=== PATIENT | male | born 1985 | race American Indian/Alaskan Native ===

== ENCOUNTER 2018-11-15 22:18 | Emergency (ER) | payer OTHER ==
[2018-11-15 22:29] VITALS: BP 135/77
--- NOTE | 2018-11-15 22:53 | Emergency Department Report ---
Blank Doc - Documentation Documentation: 33 y o male presents to ed cc of vomiting/diarrhea and peña after eating a spage tti dinner at an event states that an email was sent out that the spagetti was bad labs ,maybe IVF acc eval
[2018-11-15 23:16] LABS: Basophils % (Auto) 0.6 % (0.0-1.8); Eosinophils # (Auto) 0.1 K/mm3 (0.0-0.4); Eosinophils % (Auto) 0.6 % (0.0-4.3); Hematocrit 40.6 % (35.5-45.6); Hemoglobin 14.1 gm/dl (11.8-15.2); Lymphocytes % (Auto) 22.9 % (13.4-35.0); Mean Corpuscular HGB Conc 35 % (32-34); Mean Corpuscular Volume 91 fl (84-94); Monocytes # (Auto) 0.8 K/mm3 (0.0-0.8); Monocytes % (Auto) 8.8 % (0.0-7.3); Platelet Count 217 K/mm3 (140-440); Red Blood Count 4.49 M/mm3 (3.65-5.03); Red Cell Distribution Width 14.1 % (13.2-15.2)
[2018-11-16 00:04] LABS: BUN/Creatinine Ratio 17; Blood Urea Nitrogen 15 mg/dL (9-20); Calcium 9.3 mg/dL (8.4-10.2); Hemolysis Index 5
--- NOTE | 2018-11-16 02:58 | Emergency Department Report ---
ED N/V/D HPI - General Chief complaint: Dizziness Stated complaint: LIGHTHEADED, DIARRHEA Time Seen by Provider: 11/15/18 22:50 Source: patient Mode of arrival: Ambulatory Limitations: No Limitations - History of Present Illness Initial comments: 33-year-old obese male comes in reporting that rotation I think I have food poisoning". Patient reports that he had eaten some spaghetti from [employer] with he started to have nausea vomiting and diarrhea at 2 AM yesterday. Patient reports that his has also been suffering from the same as well as other employees. Patient reports he has started to get dizzy and felt that he needs to come in to be evaluated. Patient reportedly been able to hold down fluids was able to drink apple juice since being here. Patient has only a past medical history of morbid obesity. -: days(s) (1) Description of Vomiting: food contents, watery Description of Diarrhea: water Associated Abdominal Pain: No Context: possible food poisoning Associated Symptoms: headaches, nausea/vomiting, other (dizziness) - Related Data Previous Rx's Medication Instructions Recorded Last Taken Type Hyoscyamine Subl [Levsin Sl 0.125 0.125 mg SL Q6HR PRN #6 tab 11/16/18 Unknown Rx TAB] Ondansetron [Zofran Odt] 4 mg PO Q8HR #8 tab.rapdis 11/16/18 Unknown Rx Allergies Allergy/AdvReac Type Severity Reaction Status Date / Time No Known Allergies Allergy Unverified 11/15/18 22:20 ED Review of Systems ROS: Stated complaint: LIGHTHEADED, DIARRHEA Other details as noted in HPI Comment: All other systems reviewed and negative Gastrointestinal: nausea, vomiting, diarrhea ED Past Medical Hx - Past Medical History Additional medical history: Morbid Obesity - Surgical History Past Surgical History?: No - Social History Smoking Status: Current Every Day Smoker Substance Use Type: None - Medications Home Medications: Home Medications Medication Instructions Recorded Confirmed Last Taken Type Hyoscyamine Subl [Levsin Sl 0.125 0.125 mg SL Q6HR PRN #6 tab 11/16/18 Unknown Rx TAB] Ondansetron [Zofran Odt] 4 mg PO Q8HR #8 tab.rapdis 11/16/18 Unknown Rx ED Physical Exam - General Limitations: No Limitations General appearance: alert, in no apparent distress - Head Head exam: Present: atraumatic, normocephalic - Eye Eye exam: Present: EOMI - ENT ENT exam: Present: mucous membranes moist - Respiratory Respiratory exam: Present: normal lung sounds bilaterally. Absent: respiratory distress - Cardiovascular Cardiovascular Exam: Present: regular rate, normal rhythm. Absent: systolic murmur, diastolic murmur, rubs, gallop - GI/Abdominal GI/Abdominal exam: Present: soft, normal bowel sounds. Absent: distended, tenderness, guarding - Extremities Exam Extremities exam: Present: normal inspection, full ROM - Back Exam Back exam: Present: normal inspection - Neurological Exam Neurological exam: Present: alert, oriented X3 - Psychiatric Psychiatric exam: Present: normal affect, normal mood - Skin Skin exam: Present: warm, dry, intact, normal color. Absent: rash ED Course Vital Signs 11/15/18 22:27 Temperature 98.2 F Pulse Rate 88 Respiratory 20 Rate Blood Pressure 135/77 O2 Sat by Pulse 96 Oximetry ED Medical Decision Making - Lab Data Result diagrams: 11/15/18 23:04 11/15/18 23:04 - Medical Decision Making Patient has been evaluated by this provider in [facility]. Patient is able to hold down fluids. Discussed the patient this is most likely due to a virus and that he will need to increase his fluid intake advance his diet as tolerated and follow up with his primary care provider if symptoms persist or gets worse. Vital signs are normal, labs are stable. Critical care attestation.: If time is entered above; I have spent that time in minutes in the direct care of this critically ill patient, excluding procedure time. ED Disposition Clinical Impression: Nausea, vomiting, and diarrhea Disposition: DC-01 TO HOME OR SELFCARE Is pt being admited?: No Does the pt Need Aspirin: No Condition: Stable Instructions: Acute Nausea and Vomiting (ED), Food Poisoning (ED), Gastroenteritis (ED) Additional Instructions: Please take Zofran as needed for nausea and vomiting. Levsin for any abdominal cramping. Increase her fluid intake eventually as tolerated. If his symptoms persist or gets worse please follow up with her primary care provider Prescriptions: Hyoscyamine Subl [Levsin Sl 0.125 TAB] 0.125 mg SL Q6HR PRN #6 tab PRN Reason: Diarrhea Ondansetron [Zofran Odt] 4 mg PO Q8HR #8 tab.rapdis Referrals: [facility] [Provider Group] - 3-5 Days Forms: Work/School Release Form(ED)
== END 2018-11-16 03:15 | disposition home or self-care (01) ==
LOC: ED 22:18
DX: R11.2 Nausea with vomiting, unspecified (principal); R19.7 Diarrhea, unspecified; E66.01 Morbid (severe) obesity due to excess calories; F17.200 Nicotine dependence, unspecified, uncomplicated
CPT/HCPCS: 36415; 80048; 83690; 85025